=== PATIENT | female | born 1945 | race Caucasian/White ===

== ENCOUNTER → 2016-04-01 | Outpatient (CLI) | payer MEDICARE, OTHER ==
[~2016-04-01] MED LIST: ALOG25TA PO; AML5T PO; AMPH20TA20 PO; ASPI325T4 PO; ATE50T PO; CLON1TAB3 PO; ESOM40CA39 PO; FENO160T8 PO; FLUT250M2 INH; FURO40TA4 PO; HYDR25TA4 PO; HYDR8TAB PO; LISI40TA PO; NITR0.4S29 SL; POTA-167 PO; PRO10T PO; TRAM-297 PO; VENL150C58 PO; ZOLP10TA PO
[2016-04-01 08:00] VITALS: BP 114/73
[2016-04-01 13:25] LABS: Basophils # (auto) 0 uL; Basophils % (auto) 0.4 % (0.0-2.0); Eosinophils # (auto) 0.6 uL; Hematocrit 36.6 % (36.0-46.0); Hemoglobin 12.1 g/dL (12.2-16.2); Lymphocytes # (auto) 2.2 uL; Lymphocytes % (auto) 19.8 % (10.0-50.0); Mean Corpuscular Hemoglobin 29.9 pg (28.0-32.0); Mean Corpuscular Volume 90.4 fL (80.0-100.0); Mean Platelet Volume 7.5 fL (7.4-10.4); Monocytes # (auto) 0.8 uL; Monocytes % (auto) 7.6 % (0.0-12.0); Neutrophils # (auto) 7.5 uL; Neutrophils % (auto) 67.2 % (37.0-80.0); Platelet Count (auto) 396 10^3/uL (140-450); Red Cell Distribution Width 14.6 % (11.6-16.0); White Blood Cell 11.1 10^3/uL (4.4-10.8)
[2016-04-01 13:30] LABS: INR 1.02 (0.9-1.15); Partial Thromboplastin Time 27.7 sec (22.64-33.71); Prothrombin Time 10.5 sec (9.37-12.3)
[2016-04-01 13:41] LABS: Albumin 3.1 g/dL (3.4-5.0); Anion Gap 13 (5-15); Aspartate Aminotransferase 11 U/L (15-37); BUN/Creatinine Ratio 43.6; Blood Urea Nitrogen 41 mg/dL (7-18); Calcium 8.5 mg/dL (8.5-10.1); Carbon Dioxide 30 mmol/L (21-32); Chloride 101 mmol/L (98-107); GFR African American 76 mL/min; GFR Non-African American 63 mL/min; Glucose 115 mg/dL (74-106); Potassium 3.2 mmol/L (3.5-5.1); Sodium 144 mmol/L (136-145)
[2016-04-01 13:43] LABS: Alkaline Phosphatase 88 U/L (45-117); Bilirubin, Total < 0.1 mg/dL (0.2-1.0); Total Protein 7.4 g/dL (6.4-8.2)
== END | disposition home or self-care (01) ==
LOC: Rad HDHVI 07:58
PROVIDERS: ATTEND Internal Medicine Cardiovascular Disease
DX: I10 Essential (primary) hypertension (principal); D64.9 Anemia, unspecified; R79.1 Abnormal coagulation profile
CPT/HCPCS: 36415; 80053; 85025; 85610; 85730; 99195; G0463

== ENCOUNTER → 2016-04-05 | Outpatient (CLI) | payer MEDICARE, OTHER ==
[2016-04-05 09:00] VITALS: BP 135/89
[2016-04-05 10:00] VITALS: BP 131/86
[2016-04-05 14:07] LABS: Potassium 3.7 mmol/L (3.5-5.1)
== END | disposition home or self-care (01) ==
LOC: CHF HDHVI 08:47
PROVIDERS: ATTEND Internal Medicine Cardiovascular Disease
DX: E87.6 Hypokalemia (principal); E78.00 Pure hypercholesterolemia, unspecified; E83.40 Disorders of magnesium metabolism, unspecified
CPT/HCPCS: 36415; 80061; 83735; 84132; G0463

== ENCOUNTER → 2016-04-27 | Outpatient (CLI) | payer MEDICARE, OTHER ==
[~2016-04-27] MED LIST changes: +ADENOSINE 81 MG in GIVE UN-DILUTED 0 ML IV SCH; +ADENOSINE 90 MG/30 ML INJ IV ONE; +INFLUENZA QUAD 2016-2017 0.5 ML SYRG IM ONE
[2016-04-27 14:20] VITALS: BP 131/72
== END | disposition home or self-care (01) ==
LOC: Rad HDHVI 13:48
PROVIDERS: ATTEND Internal Medicine Cardiovascular Disease
DX: I11.0 Hypertensive heart disease with heart failure (principal); I25.10 Atherosclerotic heart disease of native coronary artery without angina pectoris; E78.00 Pure hypercholesterolemia, unspecified; I50.9 Heart failure, unspecified; Z23 Encounter for immunization
CPT/HCPCS: 78452; 90471; 90686; 93005; 96374; 96375; A9500; G0463; J0153; 96372

== ENCOUNTER → 2016-05-12 | Outpatient (CLI) | payer MEDICARE, OTHER ==
[~2016-05-12] MED LIST changes: -ADENOSINE 81 MG in GIVE UN-DILUTED 0 ML IV SCH; -ADENOSINE 90 MG/30 ML INJ IV ONE; -INFLUENZA QUAD 2016-2017 0.5 ML SYRG IM ONE
[2016-05-12 17:04] LABS: Albumin 3.9 g/dL (3.4-5.0); BUN/Creatinine Ratio 16.5; Bilirubin, Total 0.2 mg/dL (0.2-1.0); Calcium 9.7 mg/dL (8.5-10.1); Magnesium 2.1 mg/dL (1.6-2.6); Potassium 3.8 mmol/L (3.5-5.1); Total Protein 8.3 g/dL (6.4-8.2)
== END | disposition home or self-care (01) ==
LOC: LAB 13:49
PROVIDERS: ATTEND Internal Medicine Cardiovascular Disease
DX: I10 Essential (primary) hypertension (principal); E83.40 Disorders of magnesium metabolism, unspecified
CPT/HCPCS: 36415; 80053; 83735

== ENCOUNTER → 2016-06-07 | Outpatient (CLI) | payer MEDICARE, OTHER ==
[~2016-06-07] MED LIST changes: +ALBU18 IN; +ATOR10TA52 PO; +CEPH500C PO; +DICY20TA64 PO; +DOCU-80 PO; +MAGN400S25 PO
[2016-06-07 11:30] VITALS: BP 159/73
[2016-06-07 12:00] VITALS: BP 150/76
[2016-06-07 16:22] LABS: Basophils # (auto) 0 uL; Basophils % (auto) 0.5 % (0.0-2.0); Eosinophils # (auto) 0.4 uL; Eosinophils % (auto) 3.9 % (0.0-7.0); Hematocrit 38.4 % (36.0-46.0); Hemoglobin 12.8 g/dL (12.2-16.2); Lymphocytes # (auto) 1.9 uL; Lymphocytes % (auto) 19.1 % (10.0-50.0); Mean Corpuscular Hemoglobin 29.7 pg (28.0-32.0); Mean Corpuscular Hgb Conc. 33.3 g/dL (32.0-36.0); Mean Corpuscular Volume 89.1 fL (80.0-100.0); Mean Platelet Volume 7.9 fL (7.4-10.4); Monocytes # (auto) 0.9 uL; Monocytes % (auto) 9.2 % (0.0-12.0); Neutrophils # (auto) 6.7 uL; Neutrophils % (auto) 67.3 % (37.0-80.0); Platelet Count (auto) 368 10^3/uL (140-450); Red Cell Distribution Width 14.1 % (11.6-16.0); White Blood Cell 9.9 10^3/uL (4.4-10.8)
[2016-06-07 16:47] LABS: BUN/Creatinine Ratio 17.6; Calcium 9.4 mg/dL (8.5-10.1); Potassium 3.5 mmol/L (3.5-5.1)
[2016-06-07 16:53] LABS: INR 1.04 (0.9-1.15); Partial Thromboplastin Time 25.8 sec (22.64-33.71); Prothrombin Time 10.7 sec (9.37-12.3)
== END | disposition home or self-care (01) ==
LOC: Rad HDHVI 11:08
PROVIDERS: ATTEND Internal Medicine Cardiovascular Disease
DX: I10 Essential (primary) hypertension (principal); D64.9 Anemia, unspecified; R79.1 Abnormal coagulation profile
CPT/HCPCS: 36415; 71020; 80048; 85025; 85610; 85730; 93005; G0463

== ENCOUNTER 2016-06-09 11:09 | Day surgery (SDC) | payer MEDICARE, OTHER ==
[~2016-06-09 11:09] MED LIST changes: -ALOG25TA PO; -FENO160T8 PO; -HYDR25TA4 PO
[2016-06-09] MEDS ORDERED: IOHEXOL 350 MG/ML 100ML IJ ONE (13:31)
[2016-06-09] MEDS ORDERED: LIDOCAINE 2%HCL (LOCAL ANESTH.) INJ 20ML MDV ONE (13:31)
[2016-06-09] MEDS ORDERED: MIDAZOLAM HCL 1MG/1ML-2 ML VIAL ONE (14:47)
[2016-06-09] MEDS ORDERED: fentaNYL CITRATE 100 MCG/2 ML VL ONE (14:47)
[2016-06-09] MEDS ORDERED: diphenhdrAMINE HCL 50 MG/1 ML VL ONE (14:48)
[2016-06-09] MEDS ORDERED: ANGIOMAX 250 MG VIAL IV ONE (14:48)
[2016-06-09] MEDS ORDERED: methylPREDNISolone SOD SUCC 125 MG/2 ML VL ONE (14:48)
[2016-06-09] MEDS ORDERED: SODIUM CHL 0.9% 0 ML ONE (14:48)
== END 2016-06-09 18:30 | disposition home or self-care (01) ==
LOC: CATH 11:09
PROVIDERS: ATTEND Internal Medicine Cardiovascular Disease
DX: I50.30 Unspecified diastolic (congestive) heart failure (principal); I50.9 Heart failure, unspecified; Z90.710 Acquired absence of both cervix and uterus; I10 Essential (primary) hypertension; E78.5 Hyperlipidemia, unspecified; E66.01 Morbid (severe) obesity due to excess calories
CPT/HCPCS: 93460; J2250

== ENCOUNTER 2016-08-23 13:26 | Inpatient (IN) | payer MEDICARE, OTHER, BC ==
[~2016-08-23] VITALS: Ht 160 cm; Wt 107.7 kg
[~2016-08-23 13:26] MED LIST changes: +DICY20TA38 PO; -DICY20TA64 PO; -HYDR8TAB PO; +[UNRECOGNIZED DRUG - CODE] PO
[2016-08-23] MEDS ORDERED: ONDANSETRON HCL 4 MG/2 ML VIAL IV ONE (14:00)
[2016-08-23] MEDS ORDERED: HYDROmorphone HCL 2 MG/ML VL IV ONE (14:00)
[2016-08-23] MEDS ORDERED: MORPHINE SULFATE 4 MG/ML SYRG IV ONE (14:15)
[2016-08-23 14:20] LABS: Basophils # (auto) 0 uL; Basophils % (auto) 0.3 % (0.0-2.0); Eosinophils # (auto) 0.4 uL; Eosinophils % (auto) 3.1 % (0.0-7.0); Hematocrit 33.6 % (36.0-46.0); Hemoglobin 11.4 g/dL (12.2-16.2); Lymphocytes # (auto) 1.9 uL; Lymphocytes % (auto) 14.5 % (10.0-50.0); Mean Corpuscular Hemoglobin 29.2 pg (28.0-32.0); Mean Corpuscular Volume 85.9 fL (80.0-100.0); Mean Platelet Volume 7.1 fL (7.4-10.4); Monocytes # (auto) 1.3 uL; Monocytes % (auto) 10.2 % (0.0-12.0); Neutrophils # (auto) 9.2 uL; Neutrophils % (auto) 71.9 % (37.0-80.0); Platelet Count (auto) 362 10^3/uL (140-450); Red Cell Distribution Width 14.1 % (11.6-16.0); White Blood Cell 12.9 10^3/uL (4.4-10.8)
[2016-08-23 14:33] LABS: INR 0.94 (0.9-1.15); Partial Thromboplastin Time 23.8 sec (22.64-33.71); Prothrombin Time 10.2 sec (9.37-12.3)
[2016-08-23 14:46] LABS: Albumin 3.1 g/dL (3.4-5.0); Alkaline Phosphatase 75 U/L (45-117); Anion Gap 8 (5-15); Aspartate Aminotransferase 14 U/L (15-37); BUN/Creatinine Ratio 31.9; Bilirubin, Total 0.2 mg/dL (0.2-1.0); Blood Urea Nitrogen 22 mg/dL (7-18); Carbon Dioxide 28 mmol/L (21-32); Chloride 106 mmol/L (98-107); GFR African American 109 mL/min; GFR Non-African American 90 mL/min; Glucose 158 mg/dL (74-106); Magnesium 1.7 mg/dL (1.6-2.6); Potassium 3.4 mmol/L (3.5-5.1); Sodium 142 mmol/L (136-145); Total Protein 7.1 g/dL (6.4-8.2)
[2016-08-23] MEDS ORDERED: HYDROcodone-ACET 10/325MG TAB PO ONE (15:30)
[2016-08-23] MEDS ORDERED: cefTRIAXone 1GM/50ML D5W 50 ML IV ONE (16:00)
[2016-08-23] MEDS ORDERED: VANCOMYCIN PER PHARMACY 0 MG IV SCH (16:45)
[2016-08-23] MEDS ORDERED: MORPHINE SULF INJ 2 MG/ML SYRINGE 1ML IV PRN (16:45)
[2016-08-23] MEDS ORDERED: HYDROcodone-ACET 5/325MG TAB PO PRN (16:45)
[2016-08-23] MEDS ORDERED: ONDANSETRON HCL 4 MG/2 ML VIAL IV PRN (16:45)
[2016-08-23] MEDS ORDERED: DEXTROSE (50%) 50ML SYRG IV PRN (16:45)
[2016-08-23] MEDS ORDERED: DOCUSATE SOD 100 MG CAP PO PRN (16:45)
[2016-08-23] MEDS ORDERED: ACETAMINOPHEN 325 MG TAB PO PRN (16:45)
[2016-08-23] MEDS ORDERED: NITROGLYCERIN 0.4 MG SL TAB SL PRN (16:45)
[2016-08-23] MEDS ORDERED: ALBUTEROL SULF 2.5 MG/0.5ML(0.5%) NEB SOLN NEB PRN (17:00)
[2016-08-23] MEDS: InsuLIN REG 1unit/0.01ml Soln (100units/ml) SC SCH ×2 (17:00→22:00)
[2016-08-23] MEDS ORDERED: PROCHLORPERAZINE MALEATE 10 MG TAB PO PRN (17:00)
[2016-08-23] MEDS ORDERED: MILK OF MAGNESIA 30ML SUSP PO PRN (17:00)
[2016-08-23] MEDS: ACCU-CHEK COMFORT CURVE STRIP VI SCH ×2 (17:09→22:00)
[2016-08-23] MEDS: DICYCLOMINE HCL 10 MG CAP PO SCH ×2 (17:15→21:56)
[2016-08-23] MEDS ORDERED: cloNIDine HCL 0.1 MG TAB PO PRN (17:15)
[2016-08-23] MEDS ORDERED: POTASSIUM CHL 10 Meq TABLET PO ONE (17:15)
[2016-08-23] MEDS: HYDROmorphone HCL 2 MG/ML VL IV PRN ×2 (17:16→21:56)
[2016-08-23] MEDS: Boost Glucose Control 8 Ounces PO SCH ×2 (18:00→21:57)
[2016-08-23 18:30] VITALS: BP 141/71
[2016-08-23] MEDS: HYDROmorphone HCL 2 MG TAB PO SCH (18:46)
[2016-08-23 21:28] VITALS: BP 141/71
[2016-08-23] MEDS: VENLAFAXINE HCL 37.5mg XR cap PO SCH (21:56)
[2016-08-23] MEDS: VANCOMYCIN 1GM/250ML D5W 250 ML IV SCH (21:56)
[2016-08-23] MEDS: clonazePAM 0.5 MG TAB PO SCH (21:56)
[2016-08-23] MEDS: ATORVASTATIN 20 MG TAB PO SCH (21:57)
[2016-08-23] MEDS: SODIUM CHLOR 0.9% PF (SALINE LOCK) 10ML VIAL IV SCH (21:57)
[2016-08-23 22:00] VITALS: BP 126/78
[2016-08-23] MEDS: BUDESONIDE (INHALATION) 0.5 MG/2 ML NEB NEB SCH (22:00)
[2016-08-23] MEDS ORDERED: FAMOTIDINE 20 MG TAB PO SCH (22:00)
[2016-08-23] MEDS: TEMAZEPAM 15 MG CAP PO PRN (22:48)
[2016-08-23 23:01] VITALS: BP 126/78
[2016-08-24] MEDS: HYDROmorphone HCL 2 MG TAB PO SCH ×4 (00:35→18:13)
[2016-08-24] MEDS: HYDROmorphone HCL 2 MG/ML VL IV PRN ×3 (04:11→16:16)
[2016-08-24 05:00] VITALS: BP 137/73
[2016-08-24] MEDS: SODIUM CHLOR 0.9% PF (SALINE LOCK) 10ML VIAL IV SCH ×3 (05:39→21:59)
[2016-08-24 05:44] LABS: Basophils # (auto) 0.1 uL; Basophils % (auto) 0.5 % (0.0-2.0); DEFINITIVE VIEW TRANSMISSION; Eosinophils # (auto) 0.4 uL; Eosinophils % (auto) 3.3 % (0.0-7.0); Hematocrit 30.8 % (36.0-46.0); Hemoglobin 10.3 g/dL (12.2-16.2); Lymphocytes # (auto) 1.9 uL; Lymphocytes % (auto) 17.2 % (10.0-50.0); Mean Corpuscular Hemoglobin 29.2 pg (28.0-32.0); Mean Corpuscular Hgb Conc. 33.5 g/dL (32.0-36.0); Mean Corpuscular Volume 87.2 fL (80.0-100.0); Mean Platelet Volume 7.2 fL (7.4-10.4); Monocytes # (auto) 1.6 uL; Platelet Count (auto) 330 10^3/uL (140-450); Red Cell Distribution Width 14.2 % (11.6-16.0)
[2016-08-24] MEDS: Boost Glucose Control 8 Ounces PO SCH ×4 (06:00→21:59)
[2016-08-24 06:20] LABS: Albumin 2.8 g/dL (3.4-5.0); BUN/Creatinine Ratio 24.2; Bilirubin, Total 0.4 mg/dL (0.2-1.0); Calcium 8.6 mg/dL (8.5-10.1); Potassium 3.7 mmol/L (3.5-5.1); Total Protein 6.6 g/dL (6.4-8.2)
[2016-08-24] MEDS: ACCU-CHEK COMFORT CURVE STRIP VI SCH ×4 (06:43→22:00)
[2016-08-24] MEDS: DICYCLOMINE HCL 10 MG CAP PO SCH ×4 (06:43→21:59)
[2016-08-24] MEDS: InsuLIN REG 1unit/0.01ml Soln (100units/ml) SC SCH ×4 (06:43→22:00)
[2016-08-24 09:00] VITALS: BP 117/63
[2016-08-24] MEDS: BUDESONIDE (INHALATION) 0.5 MG/2 ML NEB NEB SCH (10:00)
[2016-08-24] MEDS: VANCOMYCIN 1GM/250ML D5W 250 ML IV SCH ×2 (10:54→20:18)
[2016-08-24] MEDS: ASPirin-EC 325mg tab PO SCH (10:55)
[2016-08-24] MEDS: VENLAFAXINE HCL 37.5mg XR cap PO SCH ×2 (10:55→21:58)
[2016-08-24] MEDS: clonazePAM 0.5 MG TAB PO SCH ×2 (10:55→21:58)
[2016-08-24] MEDS: MULTIPLE VITAMIN TAB PO SCH (10:56)
[2016-08-24] MEDS: amLODIPine BESYLATE 5 MG TAB PO SCH (10:57)
[2016-08-24] MEDS: PANTOPRAZOLE 40 MG TAB PO SCH (10:58)
[2016-08-24] MEDS: LISINOPRIL 20 MG TAB PO SCH (10:59)
[2016-08-24] MEDS: ATENOLOL 50 MG TAB PO SCH (10:59)
[2016-08-24] MEDS: cefTRIAXone 1GM/50ML D5W 50 ML IV SCH (14:09)
[2016-08-24 14:29] VITALS: BP 115/66
[2016-08-24 17:00] VITALS: BP 123/70
[2016-08-24] MEDS: ALBUTEROL SULF 2.5 MG/0.5ML(0.5%) NEB SOLN NEB SCH ×2 (18:00)
[2016-08-24] MEDS: ATORVASTATIN 20 MG TAB PO SCH (21:58)
[2016-08-24 22:00] VITALS: BP 138/65
[2016-08-25] MEDS: HYDROmorphone HCL 2 MG TAB PO SCH ×4 (00:06→18:00)
[2016-08-25] MEDS: TEMAZEPAM 15 MG CAP PO PRN (00:14)
[2016-08-25] MEDS: HYDROmorphone HCL 2 MG/ML VL IV PRN ×2 (02:23→11:28)
[2016-08-25 05:00] VITALS: BP 121/63
[2016-08-25] MEDS: SODIUM CHLOR 0.9% PF (SALINE LOCK) 10ML VIAL IV SCH ×3 (06:07→20:53)
[2016-08-25] MEDS: Boost Glucose Control 8 Ounces PO SCH ×4 (06:07→21:59)
[2016-08-25] MEDS: DICYCLOMINE HCL 10 MG CAP PO SCH ×4 (06:08→21:59)
[2016-08-25] MEDS: InsuLIN REG 1unit/0.01ml Soln (100units/ml) SC SCH ×4 (06:43→22:00)
[2016-08-25] MEDS: ACCU-CHEK COMFORT CURVE STRIP VI SCH ×4 (06:44→22:00)
[2016-08-25] MEDS: ALBUTEROL SULF 2.5 MG/0.5ML(0.5%) NEB SOLN NEB SCH ×3 (06:55→18:00)
[2016-08-25] MEDS: BUDESONIDE (INHALATION) 0.5 MG/2 ML NEB NEB SCH ×3 (06:55→22:00)
[2016-08-25 09:00] VITALS: BP 142/72
[2016-08-25] MEDS: amLODIPine BESYLATE 5 MG TAB PO SCH (10:00)
[2016-08-25] MEDS: ATENOLOL 50 MG TAB PO SCH (10:00)
[2016-08-25] MEDS: ASPirin-EC 325mg tab PO SCH (10:00)
[2016-08-25] MEDS: LISINOPRIL 20 MG TAB PO SCH (10:00)
[2016-08-25] MEDS: clonazePAM 0.5 MG TAB PO SCH ×2 (11:28→21:59)
[2016-08-25] MEDS: VENLAFAXINE HCL 37.5mg XR cap PO SCH ×2 (11:29→21:59)
[2016-08-25] MEDS: MULTIPLE VITAMIN TAB PO SCH (11:29)
[2016-08-25] MEDS: PANTOPRAZOLE 40 MG TAB PO SCH (11:29)
[2016-08-25 13:00] VITALS: BP 121/72
[2016-08-25] MEDS: VANCOMYCIN 1GM/250ML D5W 250 ML IV SCH ×2 (13:23→20:14)
[2016-08-25] MEDS: cefTRIAXone 1GM/50ML D5W 50 ML IV SCH (15:55)
[2016-08-25 16:57] VITALS: BP 151/78
[2016-08-25 22:00] VITALS: BP 156/77
[2016-08-25] MEDS: ATORVASTATIN 20 MG TAB PO SCH (22:00)
[2016-08-26] MEDS: SODIUM CHLOR 0.9% PF (SALINE LOCK) 10ML VIAL IV SCH (04:55)
[2016-08-26] MEDS: DICYCLOMINE HCL 10 MG CAP PO SCH ×2 (05:29→13:28)
[2016-08-26] MEDS: Boost Glucose Control 8 Ounces PO SCH ×2 (05:29→12:00)
[2016-08-26] MEDS: InsuLIN REG 1unit/0.01ml Soln (100units/ml) SC SCH ×2 (05:30→11:30)
[2016-08-26] MEDS: ACCU-CHEK COMFORT CURVE STRIP VI SCH ×2 (05:30→11:30)
[2016-08-26] MEDS: HYDROmorphone HCL 2 MG TAB PO SCH ×3 (05:30→11:43)
[2016-08-26 05:47] VITALS: BP 152/76
[2016-08-26 05:57] LABS: Basophils # (auto) 0 uL; Basophils % (auto) 0.3 % (0.0-2.0); Eosinophils # (auto) 0.6 uL; Eosinophils % (auto) 7.3 % (0.0-7.0); Hematocrit 30.1 % (36.0-46.0); Hemoglobin 10.3 g/dL (12.2-16.2); Lymphocytes # (auto) 1.7 uL; Lymphocytes % (auto) 19.3 % (10.0-50.0); Mean Corpuscular Hemoglobin 29.5 pg (28.0-32.0); Monocytes # (auto) 0.9 uL; Monocytes % (auto) 9.8 % (0.0-12.0); Neutrophils # (auto) 5.7 uL; Neutrophils % (auto) 63.3 % (37.0-80.0); Platelet Count (auto) 348 10^3/uL (140-450); Red Cell Distribution Width 13.8 % (11.6-16.0); White Blood Cell 8.9 10^3/uL (4.4-10.8)
[2016-08-26] MEDS: ALBUTEROL SULF 2.5 MG/0.5ML(0.5%) NEB SOLN NEB SCH ×3 (06:00→12:00)
[2016-08-26 06:26] LABS: BUN/Creatinine Ratio 16.7; Calcium 9.1 mg/dL (8.5-10.1); Potassium 3.1 mmol/L (3.5-5.1)
[2016-08-26] MEDS: HYDROmorphone HCL 2 MG/ML VL IV PRN ×2 (06:49→11:35)
[2016-08-26] MEDS: VANCOMYCIN 1GM/250ML D5W 250 ML IV SCH (08:40)
[2016-08-26] MEDS: BUDESONIDE (INHALATION) 0.5 MG/2 ML NEB NEB SCH (10:00)
[2016-08-26] MEDS: PANTOPRAZOLE 40 MG TAB PO SCH ×2 (10:03→11:44)
[2016-08-26 10:19] VITALS: BP 135/76
[2016-08-26] MEDS: MULTIPLE VITAMIN TAB PO SCH (11:43)
[2016-08-26] MEDS: VENLAFAXINE HCL 37.5mg XR cap PO SCH (11:44)
[2016-08-26] MEDS: amLODIPine BESYLATE 5 MG TAB PO SCH (11:45)
[2016-08-26] MEDS: clonazePAM 0.5 MG TAB PO SCH (11:46)
[2016-08-26] MEDS: ASPirin-EC 325mg tab PO SCH (11:47)
[2016-08-26] MEDS: ATENOLOL 50 MG TAB PO SCH (11:48)
[2016-08-26] MEDS: LISINOPRIL 20 MG TAB PO SCH (11:49)
[2016-08-26] MEDS: cefTRIAXone 1GM/50ML D5W 50 ML IV SCH (12:01)
[2016-08-26 14:39] VITALS: BP 146/68
[2016-08-26 17:00] VITALS: BP 135/76
[2016-08-26 17:41] VITALS: BP 127/67
== END 2016-08-26 17:05 | disposition home or self-care (01) | DRG 872 ==
LOC: ER 13:26 → EDBD 13:26 → TELE 13:27 → TELE-EAST 18:32
PROVIDERS: ADMIT Internal Medicine; ATTEND Internal Medicine Cardiovascular Disease
DX: A41.9 Sepsis, unspecified organism (principal); L03.116 Cellulitis of left lower limb; I13.0 Hypertensive heart and chronic kidney disease with heart failure and stage 1 through stage 4 chronic kidney disease, or unspecified chronic kidney disease; E44.0 Moderate protein-calorie malnutrition; I50.42 Chronic combined systolic (congestive) and diastolic (congestive) heart failure; Z68.41 Body mass index [BMI] 40.0-44.9, adult; E11.21 Type 2 diabetes mellitus with diabetic nephropathy; E11.22 Type 2 diabetes mellitus with diabetic chronic kidney disease; E66.01 Morbid (severe) obesity due to excess calories; E87.6 Hypokalemia; N18.2 Chronic kidney disease, stage 2 (mild); D63.8 Anemia in other chronic diseases classified elsewhere; E11.319 Type 2 diabetes mellitus with unspecified diabetic retinopathy without macular edema; E78.5 Hyperlipidemia, unspecified; E11.42 Type 2 diabetes mellitus with diabetic polyneuropathy; G89.29 Other chronic pain; Z83.3 Family history of diabetes mellitus; Z90.49 Acquired absence of other specified parts of digestive tract; Z90.89 Acquired absence of other organs; Z90.710 Acquired absence of both cervix and uterus; Z91.013 Allergy to seafood; Z91.048 Other nonmedicinal substance allergy status
CPT/HCPCS: 36415; 71010; 73610; 73630; 78582; 80048; 80053; 80202; 82962; 83036; 83735; 84484; 85025; 85379; 85610; 85730; 87040; 93970; 94761; 96374; 96375; 97116; 97530; J0696; J1815; J2405

== ENCOUNTER → 2016-09-20 | Outpatient (CLI) | payer MEDICARE, OTHER, BC | END | disposition home or self-care (01) | LOC: Rad HDHVI 14:39 | PROVIDERS: ATTEND Internal Medicine Cardiovascular Disease | DX: E11.319 Type 2 diabetes mellitus with unspecified diabetic retinopathy without macular edema (principal); L03.90 Cellulitis, unspecified | CPT/HCPCS: 93306 ==

== ENCOUNTER → 2016-12-21 | Outpatient (CLI) | payer MEDICARE, BC, OTHER ==
[2016-12-21 16:37] LABS: BUN/Creatinine Ratio 32.3; Calcium 9.7 mg/dL (8.5-10.1); Potassium 3.5 mmol/L (3.5-5.1)
== END | disposition home or self-care (01) ==
LOC: LAB 11:17
PROVIDERS: ATTEND Internal Medicine Cardiovascular Disease
DX: I10 Essential (primary) hypertension (principal)
CPT/HCPCS: 36415; 80048